=== PATIENT | male | born 1930 | race Caucasian/White ===

== ENCOUNTER 2022-02-08 17:58 | Inpatient (IN) | payer OTHER ==
[~2022-02-08] VITALS: Ht 180.3 cm; Wt 85.9 kg
[2022-02-08 18:11] VITALS: BP_SYST 136
--- NOTE | 2022-02-08 18:30 | NUR ---
Patient to ER bed 02 to gown for evaluation. Side rails up.
--- NOTE | 2022-02-08 18:32 | NUR ---
Pt brought by family, A&Ox4, pt presents to ER with bleeding on suprapubic catheter since this am, also c/o mild flank pain, pt afebrile ,VSS, skin pink and warm, cap refill <3,will cont to monitor.
--- NOTE | 2022-02-08 19:29 | NUR ---
Dr Lemon,T evaluating patient at bedside
[2022-02-08 20:14] LABS: BASOPHILS % (AUTO) 0.1 % (0.0-2.0); EOSINOPHILS # (AUTO) 0.3 K/uL (0.0-0.4); EOSINOPHILS % (AUTO) 4.7 % (0.0-4.0); HEMATOCRIT 36.5 % (36-54); HEMOGLOBIN 12.2 g/dL (14.0-18.0); LYMPHOCYTES # (AUTO) 0.7 K/uL (1.0-5.5); LYMPHOCYTES % (AUTO) 13.5 % (20.5-51.5); MEAN CORPUSCULAR HEMOGLOBIN 32 pg (27-31); MEAN CORPUSCULAR HGB CONC 33 % (32-36); MEAN CORPUSCULAR VOLUME 95 fL (79.0-98.0); MONOCYTES # (AUTO) 0.3 K/uL (0.0-1.0); MONOCYTES % (AUTO) 6.4 % (1.7-9.3); NEUTROPHILS # (AUTO) 4.1 K/uL (1.8-7.7); NEUTROPHILS % (AUTO) 75.3 % (40.0-70.0); PLATELET COUNT (AUTO) 138 K/uL (130-430); RED BLOOD CELL COUNT(AUTO) 3.84 MIL/uL (4.2-6.2); RED CELL DISTRIBUTION WIDTH 14.1 % (9.0-15.0); WHITE BLOOD COUNT (AUTO) 5.4 K/uL (4.8-10.8)
[2022-02-08 20:29] LABS: BILIRUBIN,URINE NEGATIVE (NEGATIVE); BLOOD, URINE 3+ (NEGATIVE); CLARITY/URINE CLOUDY (CLEAR); COLOR,URINE RED (YELLOW); GLUCOSE,URINE 3+ (NEGATIVE); KETONES,URINE NEGATIVE (NEGATIVE); LEUKOCYTE ESTERASE ,URINE 2+ (NEGATIVE); NITRITE, URINE POSITIVE (NEGATIVE); PROTEIN URINE 2+ (NEGATIVE)
[2022-02-08 20:29] LABS: ANION GAP 6 (5-15); CALCIUM 8.3 mg/dL (8.4-11.0); CHLORIDE 105 mmol/L (98-107); GLUCOSE 348 mg/dL (70-99); POTASSIUM 4.7 mmol/L (3.5-5.1); SODIUM SERUM 142 mmol/L (136-145); UREA NITROGEN, BLOOD 22 mg/dL (8-21)
[2022-02-08 20:34] LABS: ALANINE AMINOTRANSFERASE 11 U/L (12-78); ASPARTATE AMINOTRANSFERASE 15 U/L (10-37); TOTAL BILIRUBIN 0.4 mg/dL (0.0-1.0)
--- NOTE | 2022-02-08 20:40 | NUR ---
Report given to Shruti WILLIAMSON
--- NOTE | 2022-02-08 20:45 | NUR ---
ASSUMED CARE OF PT AT THIS TIME. PT A&OX4, RR EVEN AND UNLABORED. PT HAS LEG BAG PRESENT, DRAINING, CLEAR, SCANT RED URINE AT THIS TIME. UPDATED PT ON POC WITH FULL RETURNED VERBAL UNDERSTANDING. CBI ORDERED AT THIS TIME. EXPLAINED TO DR. UPTON THAT PT DOES NOT HAVE A 3 WAY SUPRAPUBIC CATHETER, NEEDED TO DO CBI. DR. UPTON WILL RE-EVALUATE NEED FOR CBI, ADMISSION. VSS. WILL CONTINUE TO MONITOR AWAITING DECISION FOR ADMISSION.
--- NOTE | 2022-02-08 21:10 | NUR ---
DR. UPTON WILL ADMIT PT. PT UPDATED. AWAITING BED ASSIGNMENT.
[2022-02-08 21:18] LABS: BACTERIA,URINE MANY /HPF (None Seen); RBC,URINE >100 /HPF (0-3); TRIPLE PHOSPHATE CRYSTAL,UR 30-50 /HPF (None Seen); WBC,URINE 80-100 /HPF (0-3)
--- NOTE | 2022-02-08 22:10 | NUR ---
Admit bed requested Patient will be admitted to care of . Admitted to TELE unit. Diagnosis HEMATURIA Inpatient (Yes or No) YES Observation (Yes or No) NO Orientation concerns or request close to nursing station (Yes or No) NO Covid Status NEGATIVE On vent or bipap NO Isolation requirements NO Needs a sitter NO From Home (Yes or if No enter name of facility) YES Requires Dialysis (Yes or No) NO Med Rec Completed (Yes of No) PT CANNOT REMEMBER
[2022-02-08] MEDS ORDERED: CEFAZOLIN 1 GM IVPB PREMIX 50 ML IV ONE (22:30)
[2022-02-08] MEDS ORDERED: ONDANSETRON HCL 4 MG/2 ML VIAL IVP PRN (23:00)
[2022-02-08] MEDS ORDERED: MORPHINE 2 MG/ML INJ. SYRINGE IVP PRN (23:00)
[2022-02-08] MEDS ORDERED: ACETAMINOPHEN 325 MG TABLET PO PRN (23:00)
--- NOTE | 2022-02-08 23:00 | NUR ---
PT ADMITTED TO TELE. PT AOX4 ABLE TO MAKE NEEDS KNOWN. RR EVEN AND UNLABORED ON RA. PT IS BLIND IN LEFT EYE. PULSES PRESENT. BOWEL SOUNDS ACTIVE. PT A SUPRA PUBIC CATHETER DRAINING WELL. URINE IS A DARK YELLOW WITH NO SIGNS ON BLOOD. PT HAS A SMALL OPEN WOUND ON L BUTTOCKS. DISCOLORATION TO BLE AND L FOOT. PT HAS $135 RUIZ IN [employer] COUNTED WITH MARCY WILLIAMSNO PRESENT. PT EDUCATED TO USE CALL LIGHT IF HE NEEDS ASSISTANCE. ALL OTHER NEEDS MEET AT THIS TIME. BED ALARM ON
[2022-02-08 23:49] VITALS: BP_SYST 140
[2022-02-09 00:48] VITALS: BP_SYST 140
--- NOTE | 2022-02-09 06:21 | NUR ---
SPC DRAINING WELL. URINE IS LITE YELLOW IN COLOR. NO SIGN OF BLOOD IN URINE.
[2022-02-09 06:55] LABS: BASOPHILS % (AUTO) 0.3 % (0.0-2.0); EOSINOPHILS # (AUTO) 0.3 K/uL (0.0-0.4); EOSINOPHILS % (AUTO) 5.1 % (0.0-4.0); HEMATOCRIT 32.9 % (36-54); HEMOGLOBIN 11.4 g/dL (14.0-18.0); LYMPHOCYTES # (AUTO) 1.1 K/uL (1.0-5.5); LYMPHOCYTES % (AUTO) 21.2 % (20.5-51.5); MEAN CORPUSCULAR HEMOGLOBIN 33 pg (27-31); MEAN CORPUSCULAR HGB CONC 35 % (32-36); MEAN CORPUSCULAR VOLUME 95 fL (79.0-98.0); MONOCYTES # (AUTO) 0.4 K/uL (0.0-1.0); MONOCYTES % (AUTO) 8.4 % (1.7-9.3); NEUTROPHILS # (AUTO) 3.3 K/uL (1.8-7.7); PLATELET COUNT (AUTO) 126 K/uL (130-430); RED BLOOD CELL COUNT(AUTO) 3.47 MIL/uL (4.2-6.2); RED CELL DISTRIBUTION WIDTH 14.1 % (9.0-15.0)
[2022-02-09 07:31] LABS: ANION GAP 6 (5-15); CALCIUM 8.5 mg/dL (8.4-11.0); CHLORIDE 105 mmol/L (98-107); CREATININE 1.24 mg/dL (0.55-1.30); GLUCOSE 302 mg/dL (70-99); PHOSPHORUS 2.6 mg/dL (2.7-4.5); POTASSIUM 4.9 mmol/L (3.5-5.1); SODIUM SERUM 138 mmol/L (136-145); UREA NITROGEN, BLOOD 20 mg/dL (8-21)
--- NOTE | 2022-02-09 07:49 | NUR ---
OPEN NOTE Patient laying in bed resting. Awake and alert with bouts of confusion. Unable to provide his home medication list because patient lives alone. Supra-pubic catheter in place, draining clear yellow urine. Denies any pain or discomfort. Patient with no distress noted and safety checks in place call light within reach. Patient was seen by urologist Dr Maier.
[2022-02-09 07:52] VITALS: BP_SYST 150
--- NOTE | 2022-02-09 08:30 | NUR ---
MD ROUNDS Patient wants to go home, Dr Wong at bedside and aware.
[2022-02-09 09:42] VITALS: BP_SYST 150
--- NOTE | 2022-02-09 09:45 | NUR ---
Caregiver call Placed a call to patient caregiver Nitin to inform him of patient discharge. Mr. Taveras stated he will have his girlfriend Gumaro pick him up in 45 mins. Patient informed.
--- NOTE | 2022-02-09 10:45 | NUR ---
Discharge Patient is discharged home and is awake alert and oriented. Changed Royal catheter to leg bag. Patient dressed and belongings given. Denies any pain and no distress or shortness of breath noted at this time. Friend picked up patient in personal vehicle. Instructed patient to take his home medications and to follow up with primary doctor and urologist. Per patient he has appointment tomorrow.
--- NOTE | 2022-02-23 12:00 | NUR ---
Tuberculosis Specialist BUMBOATER made a Post Discharge Follow-Up Phone Call to former pt. Juventino who stated he already had an apt. with his PCP, Dr. Santiago. Re. the outpt. apt. with a urologist, Juventino had an apt. but the office called stating they could not see him and had to reschedule. Juventino stated he has an apt. but it was down in the other room. Juventino also stated his he was (No long is ) urinating blook from his suprapubic cath. but has an apt. w/ Dr. Santiago on 02/25. Juventino did not have any further questions.
== END 2022-02-09 10:45 | disposition home or self-care (01) | DRG 695 ==
LOC: SED 17:58 → STU 22:15
PROVIDERS: ADMIT Student in an Organized Health Care Education/Training Program; ATTEND Student in an Organized Health Care Education/Training Program
DX: R33.9 Retention of urine, unspecified (principal); N17.0 Acute kidney failure with tubular necrosis; R31.9 Hematuria, unspecified; E11.9 Type 2 diabetes mellitus without complications; I10 Essential (primary) hypertension; N18.9 Chronic kidney disease, unspecified; Z20.822 Contact with and (suspected) exposure to COVID-19
CPT/HCPCS: 36415; 76770; 80048; 80053; 81000; 83735; 84100; 85025; 87040; 87086; 96365; 99285; G0378; J0690